=== PATIENT | female | born 1955 | race Caucasian/White ===

== ENCOUNTER → 2018-02-25 13:43 | Outpatient (CLI) | payer BC, SELFPAY ==
--- NOTE | 2018-02-25 | DI.US.S_ITS ---
PROCEDURE: US THYROID INDICATIONS: HYPOTHYROIDISM TECHNIQUE: Real-time scanning was performed of the thyroid gland, with image documentation. COMPARISON: None. FINDINGS: Right: Thyroid lobe measures 2.6 x 1.1 x 0.7 cm, and is diffusely heterogeneous in echotexture. Left: Thyroid lobe measures 2.8 x 1.4 x 0.9 cm, and is diffusely heterogeneous in echotexture. Isthmus: 1.7 mm thick. IMPRESSION: Atrophic heterogeneous thyroid in this patient with history of hypothyroidism. No focal nodularity. Dictated by: Simeon CORMIER Interpreted: Mary Waddell MD on 02/25/2018 at 16:11 Approved by: Mary Waddell M.D. on 02/25/2018 at 16:23
== END ==
PROVIDERS: Visit Provider Physician Assistant
DX: E03.9 Hypothyroidism, unspecified (principal)
CPT/HCPCS: 76536

== ENCOUNTER → 2018-03-20 11:00 | Outpatient (CLI) | payer BC, SELFPAY ==
--- NOTE | 2018-03-20 | DI.RAD.S_ITS ---
PROCEDURE: XR CHEST 2V INDICATIONS: COUGH TECHNIQUE: 2 views of the chest were acquired. COMPARISON: [facility], , CHEST 1 VIEW, 10/29/2015, 11:55. FINDINGS: Surgical changes and devices: Cholecystectomy clips. Lungs and pleura: No pleural effusions or pneumothorax. Lungs are clear. Mediastinum: Mediastinal contours are normal. Heart size is normal. Bones and chest wall: No suspicious bony abnormalities. Soft tissues appear unremarkable. IMPRESSION: No acute pulmonary process. Dictated by: Mary Waddell M.D. on 03/20/2018 at 14:48 Approved by: Mary Waddell M.D. on 03/20/2018 at 14:49
== END ==
PROVIDERS: PCP Physician Assistant; Visit Provider Student in an Organized Health Care Education/Training Program
DX: R05 Cough (principal)
CPT/HCPCS: 71046

== ENCOUNTER → 2018-06-18 14:29 | Outpatient (CLI) | payer BC, SELFPAY ==
--- NOTE | 2018-06-18 | DI.RAD.S_ITS ---
PROCEDURE: XR FOOT LT MIN 3V INDICATIONS: LEFT FOOT PAIN TECHNIQUE: 3 views of the foot were acquired. COMPARISON: None. FINDINGS: Bones: No fractures or dislocations. No suspicious bony lesions. Soft tissues: No tibiotalar joint effusion. Achilles tendon appears normal. IMPRESSION: Negative exam as above If the patient's pain or other symptoms persist, consider further evaluation with MRI Dictated by: Jose Juan Baugh M.D. on 06/18/2018 at 16:05 Approved by: Jose Juan Baugh M.D. on 06/18/2018 at 16:06
--- NOTE | 2018-06-18 | DI.RAD.S_ITS ---
PROCEDURE: XR FOOT RT MIN 3V INDICATIONS: RIGHT FOOT PAIN TECHNIQUE: 3 views of the foot were acquired. COMPARISON: [facility], , XR FOOT LT MIN 3V, 06/18/2018, 14:37. FINDINGS: Bones: No fractures or dislocations. No suspicious bony lesions. No evidence of erosions Soft tissues: No tibiotalar joint effusion. Achilles tendon appears normal. IMPRESSION: Negative examination. If the patient's pain or other symptoms persist, consider further evaluation with MRI Dictated by: Jose Juan Baugh M.D. on 06/18/2018 at 16:14 Approved by: Jose Juan Baugh M.D. on 06/18/2018 at 16:18
--- NOTE | 2018-06-18 | DI.RAD.S_ITS ---
PROCEDURE: XR HAND LT MIN 3V INDICATIONS: HAND PAIN BILAT TECHNIQUE: 3 views of the hand(s) acquired. COMPARISON: None. FINDINGS: Bones: No fractures or dislocations. Carpal bones are normally aligned. No suspicious bony lesions. First CMC and triscaphe joint degeneration. Mild subluxation at the first CMC joint Soft tissues: No suspicious soft tissue calcifications. IMPRESSION: First CMC and triscaphe joint degeneration, and mild subluxation of the first CMC joint. Dictated by: Jose Juan Baugh M.D. on 06/18/2018 at 16:18 Approved by: Jose Juan Baugh M.D. on 06/18/2018 at 16:20
--- NOTE | 2018-06-18 | DI.RAD.S_ITS ---
PROCEDURE: XR HAND RT MIN 3V INDICATIONS: HAND PAIN BILAT TECHNIQUE: 3 views of the hand(s) acquired. COMPARISON: None. FINDINGS: Bones: No fractures or dislocations. Carpal bones are normally aligned. No suspicious bony lesions. First CMC and triscaphe joint degeneration. Subluxation at the first CMC joint. Soft tissues: No suspicious soft tissue calcifications. IMPRESSION: First CMC and triscaphe joint degeneration, with subluxation at the first CMC joint. Dictated by: Jose Juan Baugh M.D. on 06/18/2018 at 16:06 Approved by: Jose Juan Baugh M.D. on 06/18/2018 at 16:08
== END ==
PROVIDERS: PCP Physician Assistant; Visit Provider Physician Assistant
DX: M18.0 Bilateral primary osteoarthritis of first carpometacarpal joints (principal); S63.052A Subluxation of other carpometacarpal joint of left hand, initial encounter; S63.051A Subluxation of other carpometacarpal joint of right hand, initial encounter; M79.672 Pain in left foot; M79.671 Pain in right foot; M79.642 Pain in left hand; M79.641 Pain in right hand
CPT/HCPCS: 73130; 73630

== ENCOUNTER → 2022-07-14 07:55 | Outpatient (CLI) | payer OTHER, SELFPAY ==
[2022-07-14 10:34] LABS: COVID-19 CEPHEID 4-PLEX PCR Negative (Negative); Influenza A - CEPHEID Flu A NEGATIVE (NEGATIVE); Influenza B - CEPHEID Flu B NEGATIVE (NEGATIVE); Respiratory Syncytial Virus Negative (Negative)
== END ==
PROVIDERS: PCP Physician Assistant; Visit Provider Registered Nurse
DX: J06.9 Acute upper respiratory infection, unspecified (principal); Z20.822 Contact with and (suspected) exposure to COVID-19
CPT/HCPCS: 0241U

== ENCOUNTER → 2022-07-14 08:17 | Outpatient (CLI) | payer OTHER, SELFPAY ==
--- NOTE | 2022-07-14 08:19 | DI.RAD.S_ITS ---
PROCEDURE: XR CHEST 2V INDICATIONS: Worsening cough. - hx of nodules from [place] TECHNIQUE: 2 views of the chest were acquired. COMPARISON: [facility], [place], XR CHEST 2V, 03/20/2018, 11:05. [facility], [place], CHEST 1 VIEW, 10/29/2015, 11:55. FINDINGS: Surgical changes and devices: None. Lungs and pleura: Low lung volumes. No dense consolidation or pleural effusion. Mediastinum: Mediastinal contours are normal. Heart size is normal. Bones and chest wall: No suspicious bony abnormalities. Soft tissues appear unremarkable. IMPRESSION: No acute radiographic abnormality. Small nodules are often occult on chest radiograph and CT is recommended if there were prior follow-up recommendations. Dictated by: Jace Gtuierrez M.D. on 07/14/2022 at 8:32 Approved by: Jace Gutierrez M.D. on 07/14/2022 at 8:34
== END ==
PROVIDERS: PCP Physician Assistant; Referring Provider Registered Nurse; Visit Provider Registered Nurse
DX: R05.9 Cough, unspecified (principal); J06.9 Acute upper respiratory infection, unspecified; Z20.822 Contact with and (suspected) exposure to COVID-19
CPT/HCPCS: 0241U; 71046

== ENCOUNTER → 2023-08-31 15:36 | Outpatient (CLI) | payer OTHER, SELFPAY ==
--- NOTE | 2023-08-31 15:38 | DI.MRI.S_ITS ---
PROCEDURE: MR HIP RT WO CON INDICATIONS: Gluteal tendinitis, right hip TECHNIQUE: Noncontrast coronal T1 spin echo and STIR through the bony pelvis. Coronal and axial T2 fast spin echo with fat saturation, sagittal T1 spin echo, and oblique axial T2 fast spin echo with fat saturation through the hip. COMPARISON: [facility], [place], XR PELVIS WITH LATERAL HIP RIGHT, 08/07/2023, 14:38. FINDINGS: Image quality: Excellent. Bones and joints: [id number] bilateral hip joint osteoarthritic changes are seen with superior joint space narrowing, subchondral sclerosis and marginal osteophyte formation. No marrow edema. No fracture or dislocation. No avascular necrosis of the femoral heads. The visualized lower lumbar spine appears normally aligned. Tendons and ligaments: Distal right gluteus minimus tendinosis at its insertion on greater trochanter is seen. Low-grade partial-thickness tear involving distal right gluteus medius tendon at its insertion on greater trochanter is noted extending to musculotendinous junction. The nearby proximal iliotibial band also appears intact. The iliopsoas tendon appears intact, without adjacent bursal fluid collections or evidence for impingement syndrome. Tendinosis involving right hamstring tendon origins at ischial tuberosity is noted. Labrum and cartilage: The acetabular labrum appears intact in the absence of intra-articular contrast. Thinning of articulating cartilage over right femoral head is seen. The alpha angle of the femur is within normal limits at less than 55 degrees. Soft tissues: Visualized muscles demonstrate normal bulk and internal signal. Quadratus femoris muscle demonstrates no internal edema to suggest ischiofemoral impingement. The proximal sciatic neurovascular bundle appears normal adjacent to the hamstring tendons. No free pelvic fluid. Bladder wall thickness is normal. Genitourinary structures and bowel loops appear normal where visualized. IMPRESSION: 1. [id number] bilateral hip joint osteoarthritis. No acute pelvic or hip fracture. No evidence of avascular necrosis. 2. Distal right gluteus minimus tendinosis. Low-grade partial-thickness tear involving distal right gluteus medius extending to musculotendinous junction. Tendinosis involving right hamstring tendon origins at ischial tuberosity. 3. No evidence of focal labral tear. Dictated by: Paulino Najera M.D. on 08/31/2023 at 16:56 Approved by: Paulino Najera M.D. on 08/31/2023 at 17:00
== END ==
PROVIDERS: PCP Physician Assistant; Referring Provider Physical Medicine & Rehabilitation; Visit Provider Physical Medicine & Rehabilitation
DX: M76.01 Gluteal tendinitis, right hip (principal); M16.0 Bilateral primary osteoarthritis of hip; S76.011A Strain of muscle, fascia and tendon of right hip, initial encounter
CPT/HCPCS: 73721

== ENCOUNTER → 2023-09-07 10:38 | Outpatient (CLI) | payer OTHER, SELFPAY ==
[2023-09-07 11:30] LABS: Add Manual Diff / Slide Review NO; Basophils Absolute Auto 0 /uL (0-100); Basophils Percent Auto 0.2 % (0-2); Eosinophils Absolute Auto 200 /uL (0-450); Eosinophils Percent Auto 3.4 % (2-4); Hematocrit 40.2 % (36-46); Lymphocytes Absolute Auto 2600 /uL (1100-4500); Lymphocytes Percent Auto 37.4 % (25-40); Mean Corpuscular HGB Conc 34.9 % (30-36); Mean Corpuscular Hemoglobin 32.9 PG (26-34); Mean Corpuscular Volume 94.3 fL (80-100); Monocytes Absolute Auto 700 /uL (0-900); Monocytes Percent Auto 10.9 % (3-14); Neutrophils Absolute Auto 3300 /uL (1500-7000); Neutrophils Percent Auto 48.1 % (50-75); Platelet Count 406 X10^3/uL (150-400); Red Blood Cell Count 4.26 X10^6/uL (4.0-5.2); Red Cell Distribution Width 12.7 % (11.6-14.8); White Blood Cell Count 6.8 X10^3/uL (4.5-11.0)
== END ==
PROVIDERS: PCP Physician Assistant; Referring Provider Physical Medicine & Rehabilitation; Visit Provider Physical Medicine & Rehabilitation
DX: M76.01 Gluteal tendinitis, right hip (principal)
CPT/HCPCS: 36415; 85025